=== PATIENT | male | born 1985 | race African-American/Black ===

== ENCOUNTER 2018-07-06 13:24 | Emergency (ER) | payer SELFPAY ==
[~2018-07-06] VITALS: Ht 193 cm; Wt 126.8 kg
[2018-07-06] MEDS ORDERED: IBUPROFEN 600MG TABLET PO ONE (14:30)
[2018-07-06 16:00] VITALS: BP 130/91
== END 2018-07-06 16:02 | disposition home or self-care (01) ==
LOC: ER 13:24
DX: S93.492A Sprain of other ligament of left ankle, initial encounter (principal); I10 Essential (primary) hypertension; F12.10 Cannabis abuse, uncomplicated; F17.200 Nicotine dependence, unspecified, uncomplicated; Z91.013 Allergy to seafood; X58.XXXA Exposure to other specified factors, initial encounter; Y93.61 Activity, american tackle football; Y92.89 Other specified places as the place of occurrence of the external cause; Y99.8 Other external cause status
CPT/HCPCS: 73610; 99284; Z7610